=== PATIENT | female | born 1985 | race Caucasian/White ===

== ENCOUNTER 2016-10-15 10:01 | Emergency (ER) | payer BC ==
[~2016-10-15] VITALS: Ht 157.5 cm; Wt 81.6 kg
[2016-10-15 10:13] VITALS: BP 130/71; PULSE 94; RESP 16; TEMP 97.1; O2SAT 98
[2016-10-15] MEDS ORDERED: PROCHLORPERAZINE EDISYLATE 10 MG/2 ML VIAL IVP ONE (11:00)
[2016-10-15] MEDS ORDERED: DEXAMETHASONE SOD PHOSPHATE 10 MG/ML VIAL IVP ONE (11:00)
[2016-10-15] MEDS ORDERED: NACL 0.9% 1,000 ML IV ONE (11:00)
[2016-10-15] MEDS ORDERED: KETOROLAC TROMETHAMINE 30 MG VIAL IVP ONE (11:00)
[2016-10-15 11:40] VITALS: BP 114/61; PULSE 76; RESP 16; TEMP 98; O2SAT 100
== END 2016-10-15 11:40 | disposition home or self-care (01) ==
LOC: SED 10:01
DX: G43.919 Migraine, unspecified, intractable, without status migrainosus (principal); H53.149 Visual discomfort, unspecified; R03.0 Elevated blood-pressure reading, without diagnosis of hypertension; Z88.2 Allergy status to sulfonamides
CPT/HCPCS: 81025; 96361; 96374; 96375; 99284; J0780; J1100; J1885; J7030

== ENCOUNTER 2019-03-14 15:57 | Outpatient (CLI) | payer BC, MEDICARE | END 2019-03-14 21:18 | disposition home or self-care (01) | LOC: SRD 15:57 | DX: J32.9 Chronic sinusitis, unspecified (principal) | CPT/HCPCS: 70220-TC ==